=== PATIENT | female | born 1980 | race Caucasian/White ===

== ENCOUNTER 2017-03-27 07:31 | Emergency (ER) | payer BC ==
[~2017-03-27] VITALS: Ht 165.1 cm; Wt 56.0 kg
[~2017-03-27 07:31] MED LIST: PRENTAB26 PO
[2017-03-27 07:38] VITALS: TEMP 37.1; Ht 165.1 cm; Wt 56.0 kg
--- NOTE | 2017-03-27 08:06 | DIAGNOSTIC IMAGING REPORT ---
RIGHT HAND 3 VIEWS CLINICAL HISTORY: Right hand injury. FINDINGS: 3 views of the right hand are obtained. No prior studies are available for comparison at the time of dictation. The skeletal structures are well mineralized. No fracture is seen. The joint spaces of the hand are well-maintained. Soft tissue swelling is seen overlying the fifth metacarpal. IMPRESSION: Soft tissue swelling with no radiographic evidence of fracture in the right hand. Electronically signed by: Rad Saleh M.D. 03/27/2017 8:05 AM Dictated Date/Time: 03/27/2017 8:03 AM
[2017-03-27 08:36] VITALS: BP 109/78; PULSE 65; O2SAT 99
--- NOTE | 2017-03-27 10:26 | EMERGENCY ROOM VISIT NOTE ---
ED Visit Note First contact with patient: 07:44 Chief Complaint: Right hand pain. History of Present Illness: Ms. Carrasco is a 36-year-old white female who ambulates into the ED complaining of right hand pain. Patient reports approximately 24 hours ago she became angry and punched her countertop with her right hand. She reports throughout the night she has been having a throbbing pain in the area of the fourth and fifth metacarpal and the proximal ulna. She rates her discomfort 4/10. Her pain is nonradiating. Her pain worsens with palpation and flexion and extension of the wrist. She is not identified any alleviating factors related to the pain. She reports she has taken ibuprofen without relief of her discomfort. Associated with her pain through the night she was having tingling sensations throughout the third, fourth and fifth fingers but this has subsequently resolved. She denies elbow pain, forearm pain, finger pain, hand/finger weakness/numbness/ tingling. She also denies any previous significant injuries or surgeries to the right hand. Review of Systems: As noted above in history of present illness. Past Medical History: Status post section and breast augmentation. Current Medications: Patient denies. Allergies to Medications: Prednisone. Social History: Patient is currently employed; she feels safe in her home environment; she denies tobacco use and admits to alcohol use. Physical Examination: Vital Signs: Date Time Temp Pulse Resp B/P (MAP) Pulse Ox O2 Delivery O2 Flow Rate FiO2 03/27/17 08:36 65 20 109/78 99 03/27/17 07:38 37.1 73 16 111/76 100 GENERAL: 36-year-old female in mild distress due to pain, nontoxic-appearing, afebrile and hemodynamically stable. NEUROLOGICAL: Awake, alert and oriented to person, place and time. Answering questions appropriately and following commands. SKIN: Warm, dry and pink. Right Hand: Shows a contusion over the posterior hand starting at the fourth and fifth distal metacarpals and extending superiorly to just over the ulnar styloid process. There are no breaks in the skin. RIGHT UPPER EXTREMITY: No gross bony deformity. Soft tissue contusion as noted above. No tenderness throughout the elbow or proximal forearm. Mild tenderness over the ulnar styloid process and then tenderness in the fourth and fifth metacarpals. I do not appreciate any bony deformity or crepitus. There is no tenderness or swelling in the anatomical snuffbox. She has full range of motion in pronation and supination of the forearm, flexion, extension and ulnar radial deviation of the wrist and flexion and extension of all MCP, PIP and DIP joints. Throughout the hand the skin was warm and pink and capillary refill is brisk. She was able to distinguish light sensations through all dermatomes. ED Course: Patient is assessed as noted above. Patient's medication list was reviewed. Patient was given ice for pain and comfort. Right Hand X-Rays: Were read by myself and the radiologist showing no acute fractures or dislocations. Patient's right hand and wrist was placed in a wrist immobilizer. Patient was educated about today's findings and instructed on her treatment plan ; she verbalized understanding and agreement with this plan Clinical Impression: Right wrist and hand contusion. Disposition: Patient discharged home in stable condition; prior to departure she was reassessed and subjectively reported she was feeling better and rated her discomfort 2/10. Plan: Comfort measures including rest, ice, splint use, elevation and alternating ibuprofen and acetaminophen were discussed with the patient. Patient was encouraged to follow-up with orthopedics if no better in 7-10 days. Patient was encouraged return ED for worsening/uncontrolled pain, uncontrolled swelling, hand weakness/numbness/tingling or any new/concerning symptoms.
== END 2017-03-27 08:41 | disposition home or self-care (01) ==
LOC: C.EDB 07:32 → C.EDA 08:41
DX: S60.221A Contusion of right hand, initial encounter (principal); S60.211A Contusion of right wrist, initial encounter; M79.641 Pain in right hand; W22.8XXA Striking against or struck by other objects, initial encounter; Y92.89 Other specified places as the place of occurrence of the external cause